=== PATIENT | male | born 1945 | race Caucasian/White ===

== ENCOUNTER → 2022-08-17 | Outpatient (CLI) | payer MEDICARE, OTHER ==
--- NOTE | 2022-08-12 11:16 | NUR ---
LMOM WITH INSTRUCTIONS AND CALL BALCK NUMBER
[2022-08-17] VITALS (20 sets, daily range): BP systolic 121–154; BP diastolic 72–95; PULSE 56–73; TEMP 97.7
[~2022-08-17] VITALS: Ht 180.3 cm; Wt 82.2 kg
[~2022-08-17] MED LIST: ASPIRIN 32325 MG/TAB PO; BENICAR 20MG TA20 MG PO; NATURAL POTASS595 MG PO; NORVASC2.5 MG PO; ONE-A-DAY ESSE1 EACH PO; PROZAC 10MG10 MG PO; TOPROL XL 25MG25 MG PO; ZETIA 10MG TAB10 MG PO; ZYRTEC 10MG10 MG PO
--- NOTE | 2022-08-17 11:37 | NUR ---
ct scan was clean, no bleeding. pt int dc'd intact and pressue dressing applied. went over dc info with pt and . verbalized understanding by both. dr ramirez released pt. pt taken to lobby where met us and was assisted into the car.
== END ==
LOC: COL.RAD 06:35
DX: R93.422 Abnormal radiologic findings on diagnostic imaging of left kidney (principal)
CPT/HCPCS: 32109